=== PATIENT | female | born 1995 | race Caucasian/White ===

== ENCOUNTER → 2021-02-18 | Day surgery (SDC) | payer OTHER ==
[~2021-02-18] MED LIST: DOCUSATE SODIU100 MG PO; FEMARA2.5 MG PO; MEDROXYPROGESTE10 MG PO; METFORMIN HCL500 MG PO; NAPROXEN250 MG PO; OMEPRAZOLE20 M1 PO; ROXICODONE TAB 55 MG PO
[2021-02-18 06:22] LABS: HEMOGLOBIN 13.6 gm/dl (12.3-15.3); RED BLOOD COUNT 5.07 M/UL (4.00-5.10); WHITE BLOOD COUNT 8.2 K/UL (4.5-11.0)
== END | disposition home or self-care (01) ==
LOC: OR 05:43
PROVIDERS: Obstetrics & Gynecology
DX: E28.2 Polycystic ovarian syndrome (principal); N83.02 Follicular cyst of left ovary; N83.01 Follicular cyst of right ovary; N94.6 Dysmenorrhea, unspecified; K66.0 Peritoneal adhesions (postprocedural) (postinfection); K21.9 Gastro-esophageal reflux disease without esophagitis; Z88.0 Allergy status to penicillin; Z79.84 Long term (current) use of oral hypoglycemic drugs; Z79.899 Other long term (current) drug therapy; Z20.822 Contact with and (suspected) exposure to COVID-19
CPT/HCPCS: 36415; 81001; 84702; 85025; J1100; J1170; J1885; J2001; J2250; J2405; J2704; J2710; J2795; J3010; J7120; U0002